=== PATIENT | female | born 1945 | race Caucasian/White ===

== ENCOUNTER 2016-10-29 10:34 | Emergency (ER) | payer MEDICAID, OTHER ==
[2016-10-29 10:45] VITALS: PULSE 68
--- NOTE | 2016-10-29 11:44 | UCPHY ---
H & P Time Seen by Provider: 10/29/16 10:39 Patient Type: New HPI/ROS: CHIEF COMPLAINT: Ankle injury HPI: The patient is a 71-year-old female with no significant past medical history. Yesterday she twisted her left ankle. Today she complains of pain, primarily over the lateral malleolus. She is able to bear weight with some pain. She denies injury to her knee or other body part. REVIEW OF SYSTEMS: Aside from elements discussed in the HPI, a comprehensive 10-point review of systems was reviewed and is negative. PMH: None significant. SOCIAL HISTORY: Denies alcohol or drug abuse. FAMILY HISTORY: Reviewed, noncontributory PHYSICAL EXAM: General:Patient is alert, in no acute distress. Extremities: Left ankle: Soft tissue swelling and tenderness is present over the lateral malleolus. No tenderness over the 5th metatarsal. Skin intact. Neuro: Oriented x3. Normal motor function. Normal sensory function. Smoking Status: Never smoked Constitutional: Initial Vital Signs Temperature (C) 36.9 C 10/29/16 10:43 Heart Rate 68 10/29/16 10:43 Respiratory Rate 18 10/29/16 10:43 Blood Pressure 162/77 H 10/29/16 10:43 O2 Sat (%) 98 10/29/16 10:43 O2 Delivery Mode Room Air Allergies/Adverse Reactions: codeine Allergy (Verified 10/29/16 10:45) Penicillins Allergy (Verified 10/29/16 10:45) Home Medications: Medication Instructions Recorded Ibuprofen [Motrin (*)] 600 mg PO TID #20 tab 10/29/16 MDM/Departure - [facility] ED Course/Re-evaluation: Uncomplicated ankle sprain. I reviewed and interpreted the images myself. Patient will be placed in an air splint and given crutches. - Depart Disposition: Home, Routine, Self-Care Clinical Impression: Ankle sprain Condition: Good Instructions: Ankle Sprain (ED) Additional Instructions: Rest, ice, elevation. Follow up with an orthopedic surgeon within one week if pain persists. Return to the emergency department for worsening pain, swelling , numbness, weakness or other concerns. Wear splint for comfort, weight bear as tolerated. Prescriptions: Ibuprofen [Motrin (*)] 600 mg PO TID #20 tab Referrals: NONE *PRIMARY CARE P,. [Primary Care Provider] - As per Instructions - PQRS PQRS Measurement: 134: Depression screening and followup, PRIME MD-PHQ2 (12 years and older) Over the last 2 weeks, how often have you been bothered by any of the following problems? 1. Feeling down, depressed, or hopeless? 2. Little interest or pleasure in doing things? Patient answered no to both 1 and 2 130: Documentation of medications. Reviewed all patient medications, doses, route and frequency. 226: Do you smoke? No. 51: 18 years old and older with diagnosis of COPD, spirometry performance. Spirometry not performed; equipment not available. Patient has no history of COPD 52: 18 years old and older with COPD and symptoms of COPD or FEV1<60% predicted prescribed a B Agonist. Spirometry not performed; equipment not available.
[2016-10-29 11:59] VITALS: BP 152/85; RESP 16; TEMP 98.2; O2SAT 99
== END 2016-10-29 11:57 | disposition home or self-care (01) ==
LOC: CED 10:34
DX: S93.402A Sprain of unspecified ligament of left ankle, initial encounter (principal)
CPT/HCPCS: 73610; G0463; L4350

== ENCOUNTER → 2018-08-11 | Outpatient (CLI) | payer OTHER ==
[~2018-08-11] MED LIST: IOPAMIDOL (ISOVUE-370) 150 ML BTL IV ONE
== END ==
LOC: CIMAGING 12:53
PROVIDERS: ATTEND Family Medicine
DX: K57.32 Diverticulitis of large intestine without perforation or abscess without bleeding (principal)
CPT/HCPCS: 74178; Q9967; 82565-PO